=== PATIENT | female | born 1960 | race Caucasian/White ===

== ENCOUNTER 2016-08-01 12:58 | Emergency (ER) | payer MEDICARE, BC ==
[~2016-08-01] VITALS: Ht 162.6 cm; Wt 61.5 kg
[~2016-08-01 12:58] MED LIST: AMLO-147 PO; ASPI-664 PO; CHOL20002 PO; FOLI-49 PO; FURO-109 PO; GLIM1TAB2 PO; HYDR-3672 PO; KENC1 TOP; PANT40TA4 PO; SMV40T PO; ZOLP10TA5 PO; [UNRECOGNIZED DRUG - CODE] PO
[2016-08-01 13:07] VITALS: Ht 162.6 cm; Wt 61.5 kg
[2016-08-01] MEDS ORDERED: NICARDipine HCL 30 MG CAPSULE PO ONE (14:30)
[2016-08-01 14:38] VITALS: BP 220/71; PULSE 66; RESP 18
--- NOTE | 2016-08-01 16:38 | ERD ---
ER Documentation Chief Complaint Date/Time DATE: 08/01/16 TIME: 16:37 Chief Complaint htn; no symptoms; dialysis m,w,f-but only goes on mondays and fridays HPI Patient is a 56-year-old female with dialysis, hypertension, and diabetes who presents with high blood pressure. She says "my blood pressure is too high". She says that she has had high blood pressure for "a long time". She denies any symptoms. She has no chest pain or headache. She is taking her blood pressure medicines. Her primary doctor is Dr. Hdez. Upon review of old medical records the patient has multiple visits for various complaints. ROS All systems reviewed and are negative except as per history of present illness. Medications Home Meds Active Scripts Amlodipine Besylate* (Amlodipine Besylate*) 10 Mg Tablet, 10 MG PO DAILY, #30 TAB Prov:GARRET MAZARIEGOS DO 01/07/16 Reported Medications Glimepiride* (Glimepiride*) 1 Mg Tablet, 1 MG PO BID, TAB 01/07/16 Triamcinolone Acetonide* (Kenalog*) 0.1%-15GM Cr, 1 APPLIC TOP BID, #1 TUB 01/07/16 Calcium Gluconate (Calcium Gluconate) 45 Mg Tablet, 45 MG PO BID, #60 01/07/16 Aspirin* (Aspirin* EC) 81 Mg Tablet.dr, 81 MG PO DAILY, TAB 01/07/16 Folic Acid* (Folic Acid*) 1 Mg Tablet, 1 MG PO DAILY, TAB 11/12/13 Zolpidem Tartrate* (Zolpidem Tartrate*) 10 Mg Tablet, 10 MG PO HS Y for INSOMNIA , TAB 11/12/13 Furosemide* (Lasix*) 40 Mg Tablet, 40 MG PO BID 05/03/13 Simvastatin (Simvastatin) 40 Mg Tablet, 40 MG PO DAILY 05/03/13 Pantoprazole* (Pantoprazole*) 40 Mg Tablet.dr, 40 MG PO DAILY 05/03/13 Cholecalciferol (Vitamin D3) 2,000 Unit Tablet, 2000 UNIT PO DAILY 05/03/13 Hydralazine Hcl* (Hydralazine Hcl*) 50 Mg Tablet, 50 MG PO TID 05/03/13 Allergies Allergies: Coded Allergies: No Known Allergy (Unverified , 01/07/16) PMhx/Soc History of Surgery: Yes (permacath placement (r. chest) ) Anesthesia Reaction: Yes Hx Neurological Disorder: No Hx Respiratory Disorders: No Hx Cardiac Disorders: Yes (htn) Hx Psychiatric Problems: Yes (depression) Hx Miscellaneous Medical Probl: Yes (dm, dialysis m/w/f.) Hx Alcohol Use: No Hx Substance Use: No Hx Tobacco Use: No Smoking Status: Never smoker FmHx Family History: diabetes Physical Exam Vitals Vital Signs Date Time Temp Pulse Resp B/P Pulse Ox O2 Delivery O2 Flow Rate FiO2 08/01/16 14:38 66 18 220/71 99 Room Air 08/01/16 13:07 98.4 71 18 240/119 95 Physical Exam Const: No acute distress Head: Atraumatic Eyes: Normal Conjunctiva ENT: Normal External Ears, Nose and Mouth. Neck: Full range of motion..~ No meningismus. Resp: Clear to auscultation bilaterally Cardio: Regular rate and rhythm, no murmurs Abd: Soft, non tender, non distended. Normal bowel sounds Skin: No petechiae or rashes Back: No midline or flank tenderness Ext: No cyanosis, or edema Neur: Awake and alert Psych: Normal Mood and Affect Results 24 hrs Current Medications Medications (Trade) Dose Ordered Sig/Rachel Route PRN Reason Start Time Stop Time Status Last Admin Dose Admin Nicardipine HCl (Cardene) 30 mg ONCE ONCE PO 08/01/16 14:30 08/01/16 14:31 DC 08/01/16 14:17 Procedures/MDM EKG read by me: Rate/Rhythm: Regular rate and rhythm at a normal rate Intervals: Normal Impression: No evidence of ischemia or arrhythmia Patient is a 56-year-old female who presents with high blood pressure. She is a history of high blood pressure. She will be given Cardene in the emergency department. She has no symptoms at this time. Her EKG shows no signs of ischemia. The patient will be discharged home but will likely need to see Dr. Hdez within the next 24-48 hours to discuss changes or additions to her blood pressure medication regimen. She can return for any worsening symptoms. At this point I doubt acute coronary syndrome or stroke. I doubt hypertensive emergency. Departure Diagnosis: Primary Impression: Hypertension Hypertension type: essential hypertension Qualified Code: I10 - Essential hypertension Condition: Fair Patient Instructions: High Blood Pressure (Hypertension) Referrals: ETELVINA FERRO (PCP) HARRY HDEZ MD Additional Instructions: Llame al doctor MAANA y audie leann YADIEL PARA DENTRO DE 1-2 CORTEZ.Dgale a la secretaria que nosotros le instruimos hacer esta yadiel.Avise o llame si ennis condicin se empeora antes de la yadiel. Regresa aqui si peor o no mejor. LELE CARRERA MD Aug 01, 2016 16:38
== END 2016-08-01 14:42 | disposition home or self-care (01) ==
LOC: E/R 12:58
DX: I10 Essential (primary) hypertension (principal); E11.9 Type 2 diabetes mellitus without complications; Z79.82 Long term (current) use of aspirin; Z79.84 Long term (current) use of oral hypoglycemic drugs
CPT/HCPCS: 93005